=== PATIENT | male | born 1950 | race Caucasian/White ===

== ENCOUNTER 2019-01-06 17:39 | Outpatient (CLI) | END 2019-01-06 17:54 | disposition short-term general hospital (02) | LOC: AMBL 17:39 | PROVIDERS: ATTEND Internal Medicine | DX: S90.811A Abrasion, right foot, initial encounter (principal); S50.812A Abrasion of left forearm, initial encounter; S50.811A Abrasion of right forearm, initial encounter; S80.11XA Contusion of right lower leg, initial encounter; R42 Dizziness and giddiness; V29.9XXA Motorcycle rider (driver) (passenger) injured in unspecified traffic accident, initial encounter ==